=== PATIENT | female | born 1990 | race Hispanic/Latino ===

== ENCOUNTER 2022-11-21 20:52 | Emergency (ER) | payer BC, OTHER ==
[2022-11-21] MEDS ORDERED: Ketorolac Tromethamine 30 MG/ML VIAL ONE (21:38)
[2022-11-21] MEDS ORDERED: Dexamethasone 10 MG/ML VIAL ONE (21:38)
[2022-11-21] MEDS ORDERED: Orphenadrine Citrate 60 MG/2 ML VIAL IM SCH (21:45)
== END 2022-11-21 22:17 | disposition home or self-care (01) ==
LOC: CSHERS 20:52
DX: S39.012A Strain of muscle, fascia and tendon of lower back, initial encounter (principal); F17.210 Nicotine dependence, cigarettes, uncomplicated; X50.1XXA Overexertion from prolonged static or awkward postures, initial encounter
CPT/HCPCS: 96372; 99283; J1100; J1885; J2360

== ENCOUNTER 2023-02-25 09:04 | Emergency (ER) | payer OTHER ==
[2023-02-25] MEDS ORDERED: Lidocaine 1% (PF) 30 ML VIAL ONE (09:29)
== END 2023-02-25 10:19 | disposition home or self-care (01) ==
LOC: CSHERS 09:04
DX: N76.4 Abscess of vulva (principal); F17.210 Nicotine dependence, cigarettes, uncomplicated
CPT/HCPCS: 10060; J2001

== ENCOUNTER 2023-04-16 20:22 | Emergency (ER) | payer OTHER | END 2023-04-16 21:45 | disposition home or self-care (01) | LOC: CSHERS 20:22 | DX: N75.0 Cyst of Bartholin's gland (principal); F17.210 Nicotine dependence, cigarettes, uncomplicated | CPT/HCPCS: 99282 ==

== ENCOUNTER 2024-10-02 17:43 | Emergency (ER) | payer BC, SELFPAY ==
[2024-10-02] MEDS ORDERED: Ketorolac Tromethamine 30 MG (1 mL) VIAL ONE (19:29)
== END 2024-10-02 19:59 | disposition home or self-care (01) ==
LOC: CSHERS 17:43
DX: M54.42 Lumbago with sciatica, left side (principal); F17.210 Nicotine dependence, cigarettes, uncomplicated
CPT/HCPCS: 96372; 99283; J1885

== ENCOUNTER 2025-03-28 14:54 | Outpatient (CLI) | payer BC ==
[2025-03-28 16:08] LABS: BHCG - Serum Negative (NEGATIVE); Pregs Control Background? CLEAR/WHITE (CLR/WHITE); Pregs Control Bar Appear? YES (CONTROL BAR)
[2025-03-28 16:12] LABS: Hematocrit 36.9 % (34.9-44.5); Hemoglobin 12.2 g/dL (12.0-15.5); Mean Corpuscular Hemoglobin 29.5 pg (27.0-33.0); Mean Corpuscular Volume 89.1 fL (81.6-98.3); Platelet Count 285 10x3/uL (150-450); Red Blood Cell (RBC) Count 4.14 10x6/uL (3.90-5.03); White Blood Cell (WBC) Count 10.40 10x3/uL (3.5-10.5)
== END 2025-03-28 14:55 | disposition home or self-care (01) ==
LOC: CSHLAB 14:54
PROVIDERS: ATTEND Obstetrics & Gynecology
DX: Z01.812 Encounter for preprocedural laboratory examination (principal); N90.7 Vulvar cyst
CPT/HCPCS: 84703; 85027; 86850; 86900; 86901

== ENCOUNTER 2025-04-01 09:05 | Day surgery (SDC) | payer BC ==
[2025-03-28 15:28] VITALS: BMI 27.4
[2025-04-01] MEDS ORDERED: Bacitracin 1 PK ONE (10:25)
[2025-04-01] MEDS ORDERED: Bupivacaine/Epinephrine 0.25% 30 ML VIAL ONE (10:25)
[2025-04-01] MEDS ORDERED: PROPOFOL 20 ML ONE (10:29)
[2025-04-01] MEDS ORDERED: CEFAZOLIN 2 GM VIAL ONE (10:35)
== END 2025-04-01 12:40 | disposition home or self-care (01) ==
LOC: CSHSDC 09:05
PROVIDERS: ATTEND Obstetrics & Gynecology
PROC: 0UBL0ZZ Excision of Vestibular Gland, Open Approach (ICD-10-PCS; principal; 2025-04-01)
DX: N75.0 Cyst of Bartholin's gland (principal); F17.200 Nicotine dependence, unspecified, uncomplicated
CPT/HCPCS: 88304; J2704; J3010